=== PATIENT | male | born 1945 | race Caucasian/White ===

== ENCOUNTER 2019-12-22 08:02 | Day surgery (SDC) | payer MEDICARE, OTHER ==
[~2019-12-22] VITALS: Ht 188 cm; Wt 92.1 kg
[~2019-12-22 08:02] MED LIST: AMIT10 PO; ASCO500; ASPI81EC; ATEN25 PO; Aspirin EC81 MG PO; BIOTIN1 MG PO; CALCA600CH; COENZYME Q-1030 MG PO; Citrucel500 MG PO; ENAL10 PO; FISH OIL 1,0001 EAC1 PO; FLUT44OIA IH; Flomax0.4 MG PO; LISI20 PO; METO25ER PO; METO50 PO; MULVITMINF; Norco 5-325 Ta1 EACH PO; OMEP10ER; Omeprazole20 M1 PO; SIMV40 PO
[2019-12-22] MEDS ORDERED: METO25 PO (09:01)
[2019-12-22] MEDS ORDERED: Aspir 8181 MG PO (09:02)
== END 2019-12-22 10:45 | disposition home or self-care (01) ==
LOC: ORSCSDS 08:02
PROVIDERS: Orthopaedic Surgery
PROC: 01N50ZZ Release Median Nerve, Open Approach (ICD-10-PCS; principal; 2019-12-22 09:45)
DX: G56.01 Carpal tunnel syndrome, right upper limb (principal); I10 Essential (primary) hypertension; I25.2 Old myocardial infarction; K21.9 Gastro-esophageal reflux disease without esophagitis; Z79.899 Other long term (current) drug therapy
CPT/HCPCS: J2250; J2405; J2704; J7120

== ENCOUNTER 2020-01-26 06:12 | Day surgery (SDC) | payer MEDICARE, OTHER ==
[~2020-01-26] VITALS: Ht 188 cm; Wt 93.3 kg
[~2020-01-26 06:12] MED LIST changes: +Aspir 8181 MG PO; +METO25 PO; +TRAM50 PO
== END 2020-01-26 08:38 | disposition home or self-care (01) ==
LOC: ORSCSDS 06:12
PROVIDERS: Orthopaedic Surgery
PROC: 01N50ZZ Release Median Nerve, Open Approach (ICD-10-PCS; principal; 2020-01-26 07:30)
DX: G56.02 Carpal tunnel syndrome, left upper limb (principal); I10 Essential (primary) hypertension; Z79.899 Other long term (current) drug therapy; Z87.891 Personal history of nicotine dependence
CPT/HCPCS: J1100; J2405; J2704; J3010; J7120